=== PATIENT | male | born 1995 | race Caucasian/White ===

== ENCOUNTER 2018-06-22 21:24 | Emergency (ER) | payer OTHER, SELFPAY ==
[2018-06-22] MEDS ORDERED: Ciprofloxacin HCL/Dexameth Otic Drops 7.5 ml Bottle ONE (21:43)
== END 2018-06-22 21:50 | disposition home or self-care (01) ==
LOC: ERS 21:24
DX: H60.91 Unspecified otitis externa, right ear (principal); H93.11 Tinnitus, right ear; I10 Essential (primary) hypertension; Z86.73 Personal history of transient ischemic attack (TIA), and cerebral infarction without residual deficits
CPT/HCPCS: 99283